=== PATIENT | male | born 1995 | race Caucasian/White ===

== ENCOUNTER 2017-09-29 21:34 | Emergency (ER) | payer BC ==
[~2017-09-29] VITALS: Ht 177.8 cm; Wt 100.0 kg
[~2017-09-29 21:34] MED LIST: ADDERALL20 MG PO; DESYREL 50MG50 MG PO; KLONOPIN 0.5MG0.5 MG PO; LEXAPRO20 MG PO; SINGULAIR 110 MG/TAB PO; XANAX 0.5MG0.5 MG PO; ZOLOFT 100MG100 MG PO
[2017-09-29 22:22] LABS: BASO % 0.6 % (0.0-2.0); EOS % 0.4 % (0-4.0); GRAN # 5.4 (1.4-6.5); GRAN % 77.2 % (42.2-75.2); HEMATOCRIT 47.6 % (42.0-52.0); HEMOGLOBIN 16.2 g/dl (13.5-18.0); LYMPH # 1.1 (1.2-3.4); LYMPH % 15.2 % (20.0-51.0); MEAN CELL VOLUME 84 fl (80.0-100.0); MEAN CORPUSCULAR HEMOGLOBIN 29 pg (27.0-31.0); MEAN CORPUSCULAR HGB CONC 34 g/dl (33.0-37.0); MEAN PLATELET VOLUME 10.3 fl (7.4-10.4); MONO # 0.4 (0.1-0.6); MONO % 6.3 % (1.7-9.3); PLATELET COUNT 259 K/mm3 (130-400); RED BLOOD COUNT 5.65 M/mm3 (4.20-5.60); REDCELL DISTRIBUTION WIDTH-CV 12.6 % (11.5-14.5)
[2017-09-29 22:33] LABS: ALANINE AMINOTRANSFERASE 143 U/L (21-72); ALBUMIN 5.5 gm/dL (3.5-5.0); ALKALINE PHOSPHATASE 58 U/L (50-136); ANION GAP 17 mmol/L (7-16); AST,SGOT 81 U/L (15-37); BILIRUBIN,TOTAL 3.1 mg/dL (0.0-1.0); BLOOD UREA NITROGEN 10 mg/dL (9-20); CALCIUM 9.8 mg/dL (8.4-10.2); CARBON DIOXIDE 26 mmol/L (22-30); CHLORIDE 101 mmol/L (98-107); CREATININE, serum 0.91 mg/dL (0.66-1.25); GLUCOSE 98 mg/dL (74-106); POTASSIUM 4.3 mmol/L (3.4-5.0); SODIUM 145 mmol/L (137-145); TOTAL PROTEIN 8.1 gm/dL (6.4-8.2)
[2017-09-29 22:35] LABS: ACETAMINOPHEN < 10 ug/mL (10-30); ALCOHOL(ethanol),MEDICAL < 10 mg/dL; SALICYLATE < 1.0 mg/dL
[2017-09-29 22:37] LABS: COLLECTION METHOD CLEAN CATCH
[2017-09-29 22:43] LABS: MUCOUS Present /lpf; PH 5 (5-8); SQUAMOUS EPITHELIAL None Seen /hpf; URINE APPEARANCE Hazy; URINE BACTERIA Rare /hpf; URINE BILIRUBIN Negative (NEGATIVE); URINE BLOOD Negative (NEGATIVE); URINE COLOR Yellow; URINE GLUCOSE Negative (NEGATIVE); URINE KETONE 2+ (NEGATIVE); URINE LEUKOCYTE ESTERASE Negative (NEGATIVE); URINE NITRATE Negative (NEGATIVE); URINE PROTEIN(semi-quant) Negative (NEGATIVE); URINE RBC 0-2 /hpf
[2017-09-29 22:51] LABS: TRICYCLIC ANTIDEPRESS URINE NEGATIVE
[2017-09-30] MEDS ORDERED: VISTARIL 2525 MG/CAP PO (02:02)
[2017-09-30 11:42] VITALS: BP 131/67; PULSE 78; TEMP 98.2
== END 2017-09-30 12:00 ==
LOC: COL.ER 21:34
PROVIDERS: Emergency Medicine
DX: T14.91XA Suicide attempt, initial encounter (principal); F32.9 Major depressive disorder, single episode, unspecified; X83.8XXA Intentional self-harm by other specified means, initial encounter

== ENCOUNTER → 2018-04-11 | Outpatient (CLI) | payer BC ==
[~2018-04-11] MED LIST changes: +VISTARIL 2525 MG/CAP PO
== END ==
LOC: COL.VAS 11:06
DX: R00.2 Palpitations (principal)